=== PATIENT | female | born 1955 | race Caucasian/White ===

== ENCOUNTER → 2017-04-01 | Outpatient (CLI) | payer OTHER ==
--- NOTE | 2017-04-01 13:56 | RAD ---
Lumbar spine, 2 views, 04/01/2017: History: Low back pain The lumbar vertebral heights are well-maintained. The intervertebral disc spaces are well preserved. There are mild scattered marginal spurs. There are mild degenerative changes involving the facet joints in the lower lumbar spine. More severe degenerative disc disease with endplate sclerosis and marginal spurring is noted at T11-12. Moderate aortic calcific plaquing is present. IMPRESSION: 1. Mild degenerative changes in the lumbar spine. 2. Moderate degenerative disc disease at T11-12. 3. No acute abnormality is detected.
== END | disposition home or self-care (01) ==
LOC: RAD 09:53
PROVIDERS: ATTEND Surgery
DX: M47.896 Other spondylosis, lumbar region (principal); M51.36 Other intervertebral disc degeneration, lumbar region; M51.34 Other intervertebral disc degeneration, thoracic region
CPT/HCPCS: 72100